=== PATIENT | male | born 1970 | race African-American/Black ===

== ENCOUNTER 2023-10-17 15:28 | Emergency (ER) | payer MEDICAID, MEDICARE, OTHER ==
[~2023-10-17] VITALS: Ht 177.8 cm; Wt 107.0 kg
[~2023-10-17 15:28] MED LIST: ASPI-1497 MT; ATOR40TA70 MT; CARV3.1242 MT; DEPER5 MT; ESCI20TA37 MT; FURO40TA5 MT; GABA-529 MT; HALO2TAB MT; HYDR-4133 MT; IBUP-2028 MT; OXYC1TAB5 MT; QUET200T MT; SACU1TAB MT; SPIR1TAB4 MT
[2023-10-17 15:43] VITALS: BP 113/77; PULSE 50; RESP 19; TEMP 98.3; O2SAT 98
[2023-10-17] MEDS ORDERED: KETOROLAC 15MG/ML VIAL IM ONE (16:00)
[2023-10-17] MEDS ORDERED: NAPR-1176 MT (18:19)
== END 2023-10-17 19:12 | disposition home or self-care (01) ==
LOC: ER 15:28
DX: M79.605 Pain in left leg (principal); I11.0 Hypertensive heart disease with heart failure; I50.9 Heart failure, unspecified; F19.90 Other psychoactive substance use, unspecified, uncomplicated; Z88.2 Allergy status to sulfonamides; Z88.8 Allergy status to other drugs, medicaments and biological substances; Z98.890 Other specified postprocedural states
CPT/HCPCS: 73590; 73610; 73630; 99284

== ENCOUNTER 2023-11-09 08:07 | Emergency (ER) | payer MEDICARE ==
[~2023-11-09] VITALS: Ht 170.2 cm; Wt 111.0 kg
[~2023-11-09 08:07] MED LIST changes: +HYDR-2988 MT; -HYDR-4133 MT; +NAPR-1176 MT
[2023-11-09 08:09] VITALS: O2SAT 98
[2023-11-09] MEDS: OXYMETAZOLINE HCL NASAL SPRAY 15ML BOTHNSTRLS SCH (08:49)
[2023-11-09 08:50] VITALS: BP 114/76; PULSE 100; RESP 12; TEMP 98.6
== END 2023-11-09 08:56 | disposition home or self-care (01) ==
LOC: ER 08:40
DX: R04.0 Epistaxis (principal); I11.0 Hypertensive heart disease with heart failure; I50.9 Heart failure, unspecified; E11.9 Type 2 diabetes mellitus without complications; F19.90 Other psychoactive substance use, unspecified, uncomplicated; Z98.890 Other specified postprocedural states
CPT/HCPCS: 99282

== ENCOUNTER 2024-01-07 11:32 | Emergency (ER) | payer MEDICARE ==
[~2024-01-07] VITALS: Ht 167.6 cm; Wt 105.0 kg
[2024-01-07 11:35] VITALS: O2SAT 99
[2024-01-07 13:18] LABS: BASOPHILS % 0.3 % (0.0-2.0); DIFFERENTIAL COMMENT 0; EOSINOPHILS % 0.6 % (0.0-5.0); HEMATOCRIT. 39.9 % (42.0-52.0); HEMOGLOBIN. 13.1 g/dL (14.0-18.0); MEAN CORPUSCULAR HEMOGLOBIN 26.1 pg (28.0-32.0); MEAN CORPUSCULAR HGB CONC 32.9 g/dL (31.0-37.0); MEAN CORPUSCULAR VOLUME 79.2 fL (80.0-94.0); MEAN PLATELET VOLUME 8.7 fl (7.4-10.4); MONOCYTES % 4.2 % (2.0-8.0); NEUTROPHILS % 78.9 % (40.0-76.0); PLATELET 311 x1000/uL (130-400); RED BLOOD CELL COUNT 5.04 mill/uL (4.7-6.1); RED CELL DISTRIBUTION WIDTH 15.9 % (11.6-14.6); WHITE BLOOD COUNT 11.6 x1000/uL (4.5-11.0)
[2024-01-07 13:22] LABS: PROTHROMBIN TIME 10.8 sec (9.6-11.0)
[2024-01-07 13:27] LABS: CHLORIDE 101 mEq/L (98-107); POTASSIUM 4.3 mEq/L (3.5-5.1); SODIUM 131 mEq/L (136-145)
[2024-01-07 13:28] LABS: CALCIUM 10.4 mg/dL (8.7-10.4); CARBON DIOXIDE 22 mEq/L (21-32)
[2024-01-07 13:33] LABS: CREATININE 1.5 mg/dL (0.6-1.3); UREA NITROGEN BLOOD 28 mg/dL (9-23)
[2024-01-07 13:35] LABS: ALANINE AMINOTRANSFERASE 27 IU/L (10-49); ALBUMIN 4.5 g/dL (3.2-4.8); ASPARTATE AMINOTRANSFERASE 21 IU/L (<34); BILIRUBIN TOTAL 0.4 mg/dL (0.1-1.0); PROTEIN TOTAL 7.5 g/dL (6.0-8.3)
[2024-01-07 13:44] LABS: GLUCOSE 438 mg/dL (70-105)
[2024-01-07] MEDS ORDERED: INSULIN REGULAR (HUMULIN R) UD 100 UNITS/ML SYR SUBCUT ONE (14:00)
[2024-01-07] MEDS: INSULIN REGULAR (HUMULIN R) 300UNITS/3ML VIAL SUBCUT NR (14:00)
[2024-01-07] MEDS: SODIUM CHLORIDE 0.9% 1,000 ML IV ONE (14:30)
[2024-01-07] MEDS ORDERED: OXYM30SP26 BOTHNSTRLS (15:11)
[2024-01-07] MEDS: INSULIN REGULAR (HUMULIN R) UD 100 UNITS/ML SYR IV ONE (15:45)
[2024-01-07] MEDS: OXYMETAZOLINE HCL NASAL SPRAY 15ML BOTHNSTRLS SCH (16:09)
[2024-01-07 17:00] VITALS: BP 126/78; PULSE 85; RESP 17; TEMP 98.5
== END 2024-01-07 19:24 | disposition home or self-care (01) ==
LOC: ER 11:35
DX: R04.0 Epistaxis (principal); E11.65 Type 2 diabetes mellitus with hyperglycemia; N17.9 Acute kidney failure, unspecified; I11.0 Hypertensive heart disease with heart failure; I50.9 Heart failure, unspecified; F12.10 Cannabis abuse, uncomplicated
CPT/HCPCS: 99284; 96374; 80053; 82962; 85025; 85610; 36415; 96372; J7030; J1815

== ENCOUNTER 2024-12-13 08:30 | Emergency (ER) | payer MEDICARE, MEDICAID ==
[~2024-12-13] VITALS: Ht 167.6 cm; Wt 95.3 kg
[~2024-12-13 08:30] MED LIST changes: -NAPR-1176 MT
[2024-12-13 08:38] VITALS: O2SAT 98
[2024-12-13] MEDS ORDERED: BENZ100C86 MT (09:32)
[2024-12-13 09:48] VITALS: BP 138/87; PULSE 88; RESP 17; TEMP 36.7; O2SAT 98
== END 2024-12-13 09:48 | disposition home or self-care (01) ==
LOC: ER 08:30
DX: R05.9 Cough, unspecified (principal); F12.10 Cannabis abuse, uncomplicated; I11.0 Hypertensive heart disease with heart failure; I50.9 Heart failure, unspecified; E11.9 Type 2 diabetes mellitus without complications; Z88.2 Allergy status to sulfonamides; Z88.1 Allergy status to other antibiotic agents; Z79.82 Long term (current) use of aspirin; Z79.899 Other long term (current) drug therapy; Z98.890 Other specified postprocedural states
CPT/HCPCS: 71045; 99283

== ENCOUNTER 2025-03-31 15:00 | Emergency (ER) | payer MEDICARE, MEDICAID ==
[~2025-03-31] VITALS: Ht 167.6 cm; Wt 70.0 kg
[~2025-03-31 15:00] MED LIST changes: -DEPER5 MT; -HALO2TAB MT; -HYDR-2988 MT; -IBUP-2028 MT; -OXYC1TAB5 MT; -SACU1TAB MT; -SPIR1TAB4 MT
[2025-03-31 15:06] VITALS: O2SAT 99
[2025-03-31 16:09] LABS: BASOPHILS % 0.4 % (0.0-2.0); EOSINOPHILS % 0.0 % (0.0-5.0); HEMATOCRIT. 43.3 % (42.0-52.0); HEMOGLOBIN. 14.7 g/dL (14.0-18.0); LYMPHOCYTES % 15.2 % (20.0-50.0); MEAN PLATELET VOLUME 9.0 fl (7.4-10.4); MONOCYTES % 10.8 % (2.0-8.0); NEUTROPHILS % 73.6 % (40.0-76.0); PLATELET 201 x1000/uL (130-400); RED BLOOD CELL COUNT 5.21 mill/uL (4.7-6.1); RED CELL DISTRIBUTION WIDTH 15.5 % (11.6-14.6)
[2025-03-31 16:21] LABS: CREATININE 1.4 mg/dL (0.6-1.3)
[2025-03-31 16:22] LABS: UREA NITROGEN BLOOD 12 mg/dL (9-23)
[2025-03-31 16:34] LABS: TROPONIN I HIGH SENSITIVITY 2095 ng/L (3.0-53)
[2025-03-31 17:33] LABS: INR 1.1
[2025-03-31] MEDS: SODIUM CHLORIDE 0.9% 1,000 ML IV ONE (17:45)
[2025-03-31 20:02] LABS: CLARITY URINE CLEAR (CLEAR); COLOR URINE YELLOW (YELLOW); GLUCOSE URINE 3+ (NEGATIVE); KETONES URINE NEGATIVE (NEGATIVE); LEUKOCYTE ESTERASE URINE NEGATIVE (NEGATIVE); NITRITE URINE NEGATIVE (NEGATIVE); OCCULT BLOOD URINE NEGATIVE (NEGATIVE); PH URINE 5.5 (4.5-8.0); PROTEIN URINE 1+ (NEGATIVE); SPECIFIC GRAVITY URINE 1.020 (1.005-1.030); UROBILINOGEN URINE 1.0 E.U./dL (0.2-1.0)
[2025-03-31 20:18] VITALS: BP 131/80; PULSE 108; RESP 20; TEMP 36.4; O2SAT 97
[2025-03-31 20:19] LABS: BACTERIA URINE NONE SEEN; RBC URINE NONE SEEN /hpf (0-2); SQUAMOUS EPITHELIAL CELL URINE RARE /lpf (RARE/1+); WBC URINE 0-2 /hpf (0-2)
[2025-03-31 20:24] LABS: *AMPHETAMINES SCREEN URINE NEGATIVE (NEGATIVE); *BARBITURATES SCREEN URINE NEGATIVE (NEGATIVE); *BENZODIAZEPINES SCREEN URINE NEGATIVE (NEGATIVE); *COCAINE SCREEN URINE NEGATIVE (NEGATIVE)
[2025-03-31 20:25] LABS: CANNABINOID URINE SCREEN PRESUMPTIVE POSITIVE (NEGATIVE); ECSTASY MDMA SCREEN URINE NEGATIVE (NEGATIVE); METHADONE URINE SCREEN NEGATIVE (NEGATIVE); OPIATES URINE SCREEN NEGATIVE (NEGATIVE); PHENCYCLIDINE URINE SCREEN NEGATIVE (NEGATIVE)
== END 2025-03-31 20:32 | disposition short-term general hospital (02) ==
LOC: ER 15:00
DX: R42 Dizziness and giddiness (principal); R07.89 Other chest pain; R51.9 Headache, unspecified; G93.6 Cerebral edema; E11.9 Type 2 diabetes mellitus without complications; I11.0 Hypertensive heart disease with heart failure; I50.9 Heart failure, unspecified; I67.82 Cerebral ischemia; Z79.82 Long term (current) use of aspirin; Z79.899 Other long term (current) drug therapy; Z86.73 Personal history of transient ischemic attack (TIA), and cerebral infarction without residual deficits; Z88.1 Allergy status to other antibiotic agents; Z88.2 Allergy status to sulfonamides
CPT/HCPCS: 80305; 80048; 81003; 80320; 83880; 85025; 85379; 85610; 85730; 84484; 36415; 71045; 70450; 93005; 96360; 99291; J7030; G0480

== ENCOUNTER 2025-04-10 17:39 | Emergency (ER) | payer MEDICAID, MEDICARE ==
[~2025-04-10] VITALS: Ht 165.1 cm; Wt 89.1 kg
[2025-04-10 17:42] VITALS: O2SAT 97
[2025-04-10 18:52] LABS: BASOPHILS % 0.6 % (0.0-2.0); EOSINOPHILS % 0.9 % (0.0-5.0); HEMATOCRIT. 37.9 % (42.0-52.0); HEMOGLOBIN. 12.5 g/dL (14.0-18.0); LYMPHOCYTES % 12.1 % (20.0-50.0); MEAN PLATELET VOLUME 7.4 fl (7.4-10.4); MONOCYTES % 5.5 % (2.0-8.0); NEUTROPHILS % 80.9 % (40.0-76.0); PLATELET 341 x1000/uL (130-400); RED BLOOD CELL COUNT 4.50 mill/uL (4.7-6.1); RED CELL DISTRIBUTION WIDTH 15.9 % (11.6-14.6)
[2025-04-10 19:05] LABS: INR 1.1
[2025-04-10 19:10] LABS: CREATININE 1.4 mg/dL (0.6-1.3); UREA NITROGEN BLOOD 12 mg/dL (9-23)
[2025-04-10 19:12] LABS: ASPARTATE AMINOTRANSFERASE 20 IU/L (<34); BILIRUBIN DIRECT 0.2 mg/dL (<=3.0)
[2025-04-10 19:13] LABS: BILIRUBIN TOTAL 0.6 mg/dL (0.1-1.0); PROTEIN TOTAL 7.0 g/dL (6.0-8.3)
[2025-04-10 19:24] LABS: TROPONIN I HIGH SENSITIVITY 84 ng/L (3.0-53)
[2025-04-10 21:51] LABS: TROPONIN I HIGH SENSITIVITY 76 ng/L (3.0-53)
[2025-04-10 22:35] LABS: BG DEOXYHEMOGLOBIN 33.2 % (0.0-5.0)
[2025-04-10] MEDS ORDERED: HEPARIN 25,000 UNITS PREMIX 250 ML IV PRN (23:15)
[2025-04-10] MEDS ORDERED: HEPARIN 5000 UNITS/ML VIAL IV PRN ×2 (23:15)
[2025-04-10] MEDS: HEPARIN 5000 UNITS/ML VIAL IV SCH (23:15)
[2025-04-11] MEDS: IOHEXOL-350 100 ML BOTTLE ONE (00:01)
[2025-04-11] MEDS: HEPARIN 80 UNITS/KG BOLUS IV SCH (00:56)
[2025-04-11] MEDS: HEPARIN 25,000 UNITS PREMIX 250 ML IV SCH (00:58)
[2025-04-11 01:25] LABS: TROPONIN I HIGH SENSITIVITY 82.0 ng/L (3.0-53)
[2025-04-11 03:00] VITALS: BP 88/66; PULSE 94; RESP 15; TEMP 36.9; O2SAT 97
[2025-04-12] MEDS ORDERED: HEPARIN BOLUS PRN aPTT 37-44 IV (06:00)
[2025-04-12] MEDS ORDERED: HEPARIN BOLUS PRN aPTT <36 IV (06:00)
== END 2025-04-11 03:56 | disposition short-term general hospital (02) ==
LOC: ER 17:39
DX: R07.89 Other chest pain (principal); I26.99 Other pulmonary embolism without acute cor pulmonale; I25.10 Atherosclerotic heart disease of native coronary artery without angina pectoris; E11.9 Type 2 diabetes mellitus without complications; E78.00 Pure hypercholesterolemia, unspecified; F32.A Depression, unspecified; F41.9 Anxiety disorder, unspecified; I11.0 Hypertensive heart disease with heart failure; I50.9 Heart failure, unspecified; I67.82 Cerebral ischemia; I74.3 Embolism and thrombosis of arteries of the lower extremities; Z79.82 Long term (current) use of aspirin; Z79.899 Other long term (current) drug therapy; Z86.73 Personal history of transient ischemic attack (TIA), and cerebral infarction without residual deficits; Z88.1 Allergy status to other antibiotic agents; Z88.2 Allergy status to sulfonamides
CPT/HCPCS: 99291; 71275; 74174; 93970; 71045; 80076; 80048; 83880; 83690; 85025; 85610; 84484 ×2; 70450; 82375; 82803; 93005; 73706; 72191; 36415; 96365; 96375; 82010; 85730; Q9967; J1644 ×2; A4606